=== PATIENT | female | born 1980 | race Caucasian/White ===

== ENCOUNTER → 2020-03-31 | Outpatient (CLI) | payer OTHER ==
--- NOTE | 2020-04-03 11:12 | RAD ---
EXAM: Bilateral digital screening mammogram with tomosynthesis. HISTORY: 39-year-old female presents for screening mammography. The patient is currently lactating. TECHNIQUE: Full-field digital craniocaudal and mediolateral oblique 2D and 3D tomosynthesis images of both breasts are obtained for evaluation. Computer aided detection with [email or web address] software version 9.3 was applied. COMPARISON: None. This is a baseline mammogram. BREAST PARENCHYMAL DENSITY: Level D - Extremely dense. FINDINGS: There are multiple benign calcifications scattered throughout both breasts in a predominantly anterior distribution. There are benign areas of asymmetry within both breasts. There is no suspicious mass or architectural distortion. IMPRESSION: 1. BI-RADS Category 2: Benign finding(s). 2. Note made that the exam is limited due to dense breast pattern, a component which is likely contributed to the current lactating status of the patient. RECOMMENDATION: Annual mammography is recommended. If your mammogram demonstrates that you have dense breast tissue, which could hide abnormalities, and if you have other risk factors for breast cancer that have been identified, you might benefit from supplemental screening tests that may be suggested by your ordering physician. Dense breast tissue, in and of itself, is a relatively common condition. This information is not provided to cause undue concern, but rather to raise your awareness and to promote discussion with your physician regarding the presence of other risk factors, in addition to dense breast tissue. A report of your mammography results will be sent to you and your physician. You should contact your physician if you have any questions or concerns regarding this report. Mammography is a sensitive method for finding small breast cancers, but it does not detect them all and is not a substitute for careful clinical examination. A negative mammogram does not negate a clinically suspicious finding and should not result in delay in biopsying a clinically suspicious abnormality. PQRS compliance statement - Patient information was entered into a reminder system with a target due date for the next mammogram. "Our facility is accredited by the [employer] Mamm[employer]." Electronically signed by: Pauline Posada MD (04/03/2020 11:09 AM) [id number]
== END ==
LOC: MAMMO 10:26
PROVIDERS: ATTEND Obstetrics & Gynecology
DX: Z12.31 Encounter for screening mammogram for malignant neoplasm of breast (principal); N64.89 Other specified disorders of breast
CPT/HCPCS: 77063; 77067

== ENCOUNTER → 2021-02-26 | Outpatient (CLI) | payer OTHER ==
[~2021-02-26] MED LIST: IOHEXOL 240 MG/ML 50ML VIAL. ONE; IOHEXOL 300 MG/ML 75 ML VIAL. IV ONE
--- NOTE | 2021-02-26 14:37 | RAD ---
Examination: CT of the abdomen pelvis with oral and IV contrast HISTORY: History of chronic right lower quadrant abdominal pain COMPARISON: None available TECHNIQUE: Axial CT images of the abdomen pelvis performed with oral and IV contrast. Coronal Sag[place] l reformats are performed. Exposure: One or more of the following individualized dose reduction techniques were utilized for th is examination: 1. Automated exposure control 2. Adjustment of the mA and/or kV according to patien t size 3. Use of iterative reconstruction technique FINDINGS: The bibasilar lungs are clear. No evidence of free air identified in the abdomen The the liver, spleen, adrenals grossly appears unremarkable. Gallbladder is mildly distended. The st omach is mildly distended. The visualized pancreas grossly appears unremarkable. The small bowel is nondilated. Moderate feces and gas noted in the colon. Urinary bladder is mildly distended. The bilateral kidneys enhance symmetrically. No evidence of lytic bony destructive lesion. IMPRESSION: 1. No acute intra-abdominal findings. Electronically signed by: Harris Ledesma MD (02/26/2021 2:34 PM) [id number]
== END ==
LOC: CT 12:52
PROVIDERS: ATTEND Family Medicine
DX: K31.89 Other diseases of stomach and duodenum (principal); K82.8 Other specified diseases of gallbladder; R19.5 Other fecal abnormalities; R19.4 Change in bowel habit; R10.31 Right lower quadrant pain; G89.29 Other chronic pain
CPT/HCPCS: 74177; Q9967